=== PATIENT | male | born 1975 | race Caucasian/White ===

== ENCOUNTER 2021-01-10 15:00 | Emergency (ER) | payer OTHER ==
[2021-01-10] MEDS ORDERED: Ketorolac Tromethamine 60 MG/2 ML VIAL ONE (16:36)
[2021-01-10] MEDS ORDERED: HYDROcodone/Acetaminophen 5/325 mg Tablet ONE (16:36)
[2021-01-10] MEDS ORDERED: Cyclobenzaprine 10 MG TAB ONE (16:36)
== END 2021-01-10 17:00 | disposition home or self-care (01) ==
LOC: MADERS 15:00
DX: S16.1XXA Strain of muscle, fascia and tendon at neck level, initial encounter (principal); S43.402A Unspecified sprain of left shoulder joint, initial encounter; I10 Essential (primary) hypertension; F17.220 Nicotine dependence, chewing tobacco, uncomplicated; W17.89XA Other fall from one level to another, initial encounter
CPT/HCPCS: 96372; J1885

== ENCOUNTER 2021-01-17 13:26 | Emergency (ER) | payer OTHER, SELFPAY ==
[2021-01-17] MEDS ORDERED: Ibuprofen 800 MG TAB ONE (14:00)
== END 2021-01-17 14:31 | disposition home or self-care (01) ==
LOC: MADERS 13:26
DX: S63.91XA Sprain of unspecified part of right wrist and hand, initial encounter (principal); W22.8XXA Striking against or struck by other objects, initial encounter

== ENCOUNTER 2021-11-02 07:52 | Emergency (ER) | payer SELFPAY | END 2021-11-02 08:15 | disposition home or self-care (01) | LOC: MADERS 07:52 | DX: S80.02XA Contusion of left knee, initial encounter (principal); I10 Essential (primary) hypertension; F17.220 Nicotine dependence, chewing tobacco, uncomplicated; W11.XXXA Fall on and from ladder, initial encounter | CPT/HCPCS: 99283 ==

== ENCOUNTER 2021-12-21 19:04 | Emergency (ER) | payer SELFPAY ==
[2021-12-21] MEDS ORDERED: Ketorolac Tromethamine 30 MG/ML VIAL ONE (20:26)
[2021-12-21] MEDS ORDERED: Amoxicillin/Potassium Clav 875 MG TAB ONE (20:26)
== END 2021-12-21 20:51 | disposition home or self-care (01) ==
LOC: MADERS 19:04
DX: K02.9 Dental caries, unspecified (principal); I10 Essential (primary) hypertension; F17.220 Nicotine dependence, chewing tobacco, uncomplicated
CPT/HCPCS: 96372; 99282; J1885

== ENCOUNTER 2022-04-21 18:12 | Emergency (ER) | payer SELFPAY ==
[2022-04-21] MEDS ORDERED: HYDROcodone/Acetaminophen 10/325 mg Tablet ONE (18:30)
[2022-04-21] MEDS ORDERED: Ketorolac Tromethamine 60 MG/2 ML VIAL ONE (18:30)
[2022-04-21] MEDS ORDERED: Ondansetron ODT 4 MG TAB ONE (18:30)
[2022-04-21] MEDS ORDERED: Cyclobenzaprine 10 MG TAB ONE (18:30)
== END 2022-04-21 19:23 | disposition home or self-care (01) ==
LOC: MADERS 18:12
DX: S50.362A Insect bite (nonvenomous) of left elbow, initial encounter (principal); I10 Essential (primary) hypertension; F17.220 Nicotine dependence, chewing tobacco, uncomplicated; W57.XXXA Bitten or stung by nonvenomous insect and other nonvenomous arthropods, initial encounter
CPT/HCPCS: 96372; 99282; J1885; Q0162

== ENCOUNTER 2022-08-01 13:47 | Emergency (ER) | payer SELFPAY ==
[~2022-08-01 13:47] MED LIST: Iopamidol 370 76% 100 ML VIAL ONE
[2022-08-01] MEDS ORDERED: Morphine 4 MG/ML VIAL ONE (14:25)
[2022-08-01 14:47] LABS: #Basophils 0.1 thou/uL (0.0-0.2); #Eosinphils 0.1 thou/uL (0.0-0.7); #Lymphocytes 1.8 thou/uL (1.20-3.40); #Monocytes 0.4 thou/uL (0.11-0.59); #Neutrophils 4.1 thou/uL (1.40-6.50); %Basophils 1.4 % (0.0-1.0); %Eosinophils 1.5 % (0.0-10.0); %Lymphocytes 27.4 % (21.0-51.0); %Monocytes 6.2 % (0.0-10.0); %Neutrophils 63.6 % (42.0-75.0); Hemoglobin 13.8 g/dL (14.0-18.0); Mean Corpuscular HGB CONC 34.5 g/dL (32.0-36.0); Mean Platelet Volume 7.1 fL (7.4-10.4); Platelet Count 234 10x3/uL (130-400); RBC Distribution Width 11.2 % (11.5-14.5); Red Blood Cell (RBC) Count 4.32 mill/uL (4.70-6.10); White Blood Cell (WBC) Count 6.5 10x3/uL (4.8-10.8)
[2022-08-01 14:51] LABS: ALT (SGPT) 13 U/L (8-55); AST (SGOT) 16 U/L (5-34); Albumin 4.2 g/dL (3.5-5.0); Alkaline Phosphatase 55 U/L (40-110); Anion Gap 14 mmol/L (10-20); BUN (Urea Nitrogen) 20 mg/dL (8.9-20.6); Bilirubin, Total 0.4 mg/dL (0.2-1.2); Calc. Creatinine Clearance 0 mL/min (70-130); Calcium 9.3 mg/dL (7.8-10.44); Carbon Dioxide 20 mmol/L (22-29); Chloride 107 mmol/L (98-107); Estimated GFR 91; Globulin 2.9 g/dL (2.4-3.5); Glucose 91 mg/dL (70-105); Potassium 3.9 mmol/L (3.5-5.1); Protein, Total 7.1 g/dL (6.0-8.3); Sodium 137 mmol/L (136-145)
== END 2022-08-01 16:30 | disposition home or self-care (01) ==
LOC: MADERS 13:47
DX: S20.212A Contusion of left front wall of thorax, initial encounter (principal); F17.220 Nicotine dependence, chewing tobacco, uncomplicated; W20.8XXA Other cause of strike by thrown, projected or falling object, initial encounter
CPT/HCPCS: 71260; 74177; 80053; 85025; 93005; 94760; 96374; J2270; Q9967

== ENCOUNTER 2023-03-20 11:48 | Emergency (ER) | payer SELFPAY ==
[2023-03-20] MEDS ORDERED: Orphenadrine Citrate 60 MG/2 ML VIAL ONE (12:20)
[2023-03-20] MEDS ORDERED: Ketorolac Tromethamine 30 MG/ML VIAL ONE (13:24)
== END 2023-03-20 13:28 | disposition home or self-care (01) ==
LOC: MADERS 11:48
DX: M54.50 Low back pain, unspecified (principal); F17.220 Nicotine dependence, chewing tobacco, uncomplicated; W17.89XA Other fall from one level to another, initial encounter
CPT/HCPCS: 72131; 96372; J1885; J2360

== ENCOUNTER 2023-10-08 18:16 | Emergency (ER) | payer SELFPAY ==
[2023-10-08] MEDS ORDERED: Aspirin Chewable 81 MG TAB ONE (18:40)
[2023-10-08 18:48] LABS: #Basophils 0.1 thou/uL (0.0-0.2); #Eosinphils 0.2 thou/uL (0.0-0.7); #Lymphocytes 2.7 thou/uL (1.20-3.40); #Monocytes 0.5 thou/uL (0.11-0.59); #Neutrophils 4.8 thou/uL (1.40-6.50); %Basophils 1.3 % (0.0-1.0); %Eosinophils 2.5 % (0.0-10.0); %Lymphocytes 32.3 % (21.0-51.0); %Monocytes 6.2 % (0.0-10.0); %Neutrophils 57.7 % (42.0-75.0); Hematocrit 41.7 % (42.0-52.0); Hemoglobin 13.7 g/dL (14.0-18.0); Mean Corpuscular HGB CONC 32.8 g/dL (32.0-36.0); Mean Corpuscular Hemoglobin 31.4 pg (27.0-31.0); Mean Corpuscular Volume 95.5 fl (78.0-98.0); Mean Platelet Volume 8.6 fL (7.4-10.4); Platelet Count 205 10x3/uL (130-400); RBC Distribution Width 12.1 % (11.5-14.5); Red Blood Cell (RBC) Count 4.36 mill/uL (4.70-6.10); White Blood Cell (WBC) Count 8.2 10x3/uL (4.8-10.8)
[2023-10-08 18:56] LABS: ALT (SGPT) 19 U/L (8-55); AST (SGOT) 17 U/L (5-34); Albumin 4.1 g/dL (3.5-5.0); Alkaline Phosphatase 58 U/L (40-110); Anion Gap 11 mmol/L (10-20); BUN (Urea Nitrogen) 14 mg/dL (8.9-20.6); Bilirubin, Total 0.3 mg/dL (0.2-1.2); Calc. Creatinine Clearance 0 mL/min (70-130); Calcium 8.8 mg/dL (7.8-10.44); Carbon Dioxide 23 mmol/L (22-29); Chloride 107 mmol/L (98-107); Estimated GFR 98; Globulin 3.1 g/dL (2.4-3.5); Glucose 98 mg/dL (70-105); Magnesium 2.1 mg/dL (1.6-2.6); Potassium 3.9 mmol/L (3.5-5.1); Protein, Total 7.2 g/dL (6.0-8.3); Sodium 137 mmol/L (136-145); Troponin I Less than 0.010 ng/mL (< 0.028)
== END 2023-10-08 19:22 | disposition home or self-care (01) ==
LOC: MADERS 18:16
DX: R07.89 Other chest pain (principal); I10 Essential (primary) hypertension; Z87.891 Personal history of nicotine dependence
CPT/HCPCS: 71046; 80053; 83735; 84484; 85025; 93005

== ENCOUNTER 2024-02-07 10:42 | Emergency (ER) | payer OTHER ==
[2024-02-07] MEDS ORDERED: Morphine 10 MG/ML VIAL ONE (11:20)
[2024-02-07] MEDS ORDERED: Ketorolac Tromethamine 60 MG/2 ML VIAL ONE (11:21)
== END 2024-02-07 12:50 | disposition home or self-care (01) ==
LOC: MADERS 10:42
DX: M54.50 Low back pain, unspecified (principal); F17.220 Nicotine dependence, chewing tobacco, uncomplicated; I10 Essential (primary) hypertension
CPT/HCPCS: 72131; 96372; J1885; J2270